=== PATIENT | female | born 1990 | race Two or more races ===

== ENCOUNTER 2025-01-24 08:19 | Emergency (ER) | payer OTHER ==
[~2025-01-24] VITALS: Ht 162.6 cm; Wt 90.7 kg
[2025-01-24] MEDS ORDERED: NORVASC5 MG PO (08:45)
[2025-01-24] MEDS ORDERED: 0.9 % SODIUM CHLORIDE 1,000 ML IV ONE (09:00)
[2025-01-24] MEDS ORDERED: ONDANSETRON HCL 2 MG/ML VIAL IV ONE (09:00)
[2025-01-24] MEDS ORDERED: ONDANSETRON HCL 2 MG/ML VIAL ONE (09:14)
[2025-01-24 09:46] LABS: BASO % 0.4 % (0.1-1.2); EOS # 0.11 (0.04-0.54); EOS % 1.4 % (0.7-7.0); LYMPH # 2.14 (1.18-3.74); LYMPH % 27.3 % (19.3-53.1); MEAN PLATELET VOLUME 10.30 fl (9.4-12.4); MONO # 0.44 (0.24-0.82); MONO % 5.6 % (4.7-12.5); NEUT # 5.10 (1.56-6.13); NEUT % 65.2 % (34.0-71.1); RED CELL DISTRIBUTION WIDTH 19.1 % (11.6-14.4)
[2025-01-24 10:33] LABS: ALT/SGPT 24 U/L (12-78); AST/SGOT 17 U/L (15-37); BILIRUBIN TOTAL 0.31 mg/dL (0.3-1.2); BUN CREA RATIO 18 (7.0-25.0); CREATININE SERUM 0.74 mg/dL (0.55-1.02); GFR 88.80; GLOBULINA 4.7 G/DL (2.4-3.5); GLUCOSE FASTING 73 mg/dL (65-100); HCG QUANTITATIVE < 1 mUI/mL (1-3); OSMOLALITY SERUM 280 MOSM/KG (275-295)
[2025-01-24 10:50] LABS: COVID-19 AG NEGATIVE (NEGATIVE)
[2025-01-24 11:24] LABS: URINE APPEARANCE Clear; URINE BILIRRUBIN Negative (NEGATIVE); URINE BLOOD Negative; URINE COLOR Yellow; URINE GLUCOSE Negative (NEGATIVE); URINE KETONE Negative (NEGATIVE); URINE LEUKOCYTE Negative; URINE NITRATE Negative; URINE PROTEIN Negative (NEGATIVE); URINE UROBILINOGEN 0.2 E.U./dl
[2025-01-24 11:30] LABS: URINE BACTERIA 111.5 uL (0.0-1933); URINE EPITHELIAL CELLS 4.3 uL (0.0-38.8); URINE WBC 2.1 uL (0.0-23.2)
[2025-01-24 11:40] LABS: URINE CAST 0.14 uL (0.0-1.40); URINE RBC 1.0 uL (0.0-20.8)
[2025-01-24] MEDS ORDERED: PEPCID AC20 MG PO (12:44)
[2025-01-24] MEDS ORDERED: ZOFRAN8 MG PO (12:44)
[2025-01-24 13:43] VITALS: BP 125/78; O2SAT 100
== END 2025-01-24 13:44 | disposition home or self-care (01) ==
LOC: ER 08:19
PROVIDERS: General Practice
DX: R42 Dizziness and giddiness (principal); R11.10 Vomiting, unspecified; I10 Essential (primary) hypertension; Z20.822 Contact with and (suspected) exposure to COVID-19